=== PATIENT | male | born 1985 | race American Indian/Alaskan Native ===

== ENCOUNTER 2017-09-28 12:24 | Emergency (ER) | payer SELFPAY ==
[2017-09-28 12:57] VITALS: BP 147/93
--- NOTE | 2017-09-28 13:50 | Ultrasound Report ---
TESTICULAR ULTRASOUND WITH DUPLEX DOPPLER ULTRASOUND: 09/28/17 13:03:00 CLINICAL: Scrotal pain scrotal pain. FINDINGS: High resolution ultrasound demonstrated marked left-sided scrotal wall thickening and an irregular complex collection in the left scrotum superior to the left testis measuring approximately 4.5 x 1.6 x 3.2 cm. Echogenic foci within the collection are consistent with air. The left testis is displaced posteriorly by the thickened left scrotum and the more anterior collection. Both testes have normal echogenicity size and contours. No testicular mass or cyst. The right testis measured 4.2 x 2.7 x 2.6 cm. The left testis measured 3.1 x 1.6 x 2.3cm. Both testes and epididymes demonstrated blood flow by color and duplex Doppler with normal spectral waveforms. However, the blood flow in the left testis is reduced and this is explained by the greater distance between the left testis and the probe produced by swelling and the left-sided collection. The left epididymis is not well-demonstrated. The right epididymis is normal with normal blood flow. IMPRESSION: A 4.5 cm left scrotal abscess which may arise from the left epididymis. Reduced blood flow in the left testis is likely due to the technical factor of greater than usual distance between the probe and the testis. No testicular torsion.
[2017-09-28] MEDS ORDERED: BOOSTRIX IM ONE (15:03)
[2017-09-28] MEDS ORDERED: TORADOL IM ONE (15:03)
[2017-09-28] MEDS ORDERED: XYLOCAINE 1% MPF 5 mL INFILTRATI ONE (15:03)
[2017-09-28] MEDS ORDERED: ROCEPHIN IM ONE (15:03)
--- NOTE | 2017-09-28 15:03 | Emergency Department Report ---
ED Male HPI - General Chief complaint: Urogenital-Male Stated complaint: BACK PAIN Time Seen by Provider: 09/28/17 14:57 Source: patient Mode of arrival: Ambulatory Limitations: No Limitations - History of Present Illness Initial comments: Patient reports left testicular pain with swelling and a headache that started three days ago. He reports penile discharge one week ago, however the discharge has resolved. MD Complaint: testicle pain, testicle swelling Onset/Timin -: days(s) Location: left testicle Radiation: other (back) Severity: moderate, severe Severity scale (0 -10): 10 Quality: aching Consistency: constant Improves with: rest Worsens with: movement swelling, rash - Related Data Sexually active: Yes Previous Rx's Medication Instructions Recorded Last Taken Type Clindamycin [Clindamycin CAP] 300 mg PO Q8H #30 cap 09/28/17 Unknown Rx HYDROcodone/APAP 5-325 [Monclova 1 each PO Q6HR PRN #10 tablet 09/28/17 Unknown Rx 5/325] Ibuprofen 800 mg PO QID #30 tablet 09/28/17 Unknown Rx Allergies Allergy/AdvReac Type Severity Reaction Status Date / Time No Known Allergies Allergy Unverified 09/28/17 12:51 ED Review of Systems ROS: Stated complaint: BACK PAIN Other details as noted in HPI Constitutional: denies: chills, fever Respiratory: denies: cough, shortness of breath, wheezing Cardiovascular: denies: chest pain, palpitations, dyspnea on exertion, orthopnea , edema, syncope, paroxysmal nocturnal dyspnea Gastrointestinal: denies: abdominal pain, nausea, vomiting, diarrhea, constipation, hematemesis, hematochezia Genitourinary: denies: urgency, dysuria Musculoskeletal: back pain. denies: joint swelling, arthralgia, myalgia Skin: rash (left testicle). denies: lesions, change in color, change in hair/ nails, pruritus Neurological: headache. denies: weakness, numbness, paresthesias, confusion, abnormal gait, vertigo Psychiatric: denies: anxiety, depression Hematological/Lymphatic: denies: easy bleeding, easy bruising, swollen glands ED Past Medical Hx - Past Medical History Previous Medical History?: No - Surgical History Past Surgical History?: No - Social History Smoking Status: Current Every Day Smoker Substance Use Type: Alcohol - Medications Home Medications: Home Medications Medication Instructions Recorded Confirmed Last Taken Type Clindamycin [Clindamycin CAP] 300 mg PO Q8H #30 cap 09/28/17 Unknown Rx HYDROcodone/APAP 5-325 [Monclova 1 each PO Q6HR PRN #10 tablet 09/28/17 Unknown Rx 5/325] Ibuprofen 800 mg PO QID #30 tablet 09/28/17 Unknown Rx ED Physical Exam - General Limitations: No Limitations General appearance: alert, in no apparent distress - Head Head exam: Present: atraumatic, normocephalic - Neck Neck exam: Present: normal inspection, full ROM. Absent: tenderness, meningismus, lymphadenopathy, thyromegaly - Respiratory Respiratory exam: Present: normal lung sounds bilaterally. Absent: respiratory distress, wheezes, rales, rhonchi, stridor, chest wall tenderness, accessory muscle use, decreased breath sounds, prolonged expiratory - Cardiovascular Cardiovascular Exam: Present: regular rate, normal rhythm, normal heart sounds. Absent: bradycardia, tachycardia, irregular rhythm, systolic murmur, diastolic murmur, rubs, gallop - exam: Present: testicular tenderness (left), scrotal swelling (left testicle) , other (left testicle with erythema and induration, no fluctuance). Absent: urethral discharge, vertical testicular lie, circumcision External exam: Present: erythema, swelling. Absent: lesions, lacerations, ecchymosis, bleeding - Extremities Exam Extremities exam: Present: normal inspection, full ROM, normal capillary refill - Back Exam Back exam: Present: normal inspection, full ROM. Absent: tenderness, CVA tenderness (R), CVA tenderness (L), muscle spasm, paraspinal tenderness, vertebral tenderness - Neurological Exam Neurological exam: Present: alert, oriented X3, CN II-XII intact, normal gait, reflexes normal, other (no focal neuro deficits). Absent: motor sensory deficit - Psychiatric Psychiatric exam: Present: normal affect, normal mood - Skin Skin exam: Present: warm, dry, intact, normal color. Absent: rash ED Course Vital Signs 09/28/17 12:51 Temperature 98.4 F Pulse Rate 83 Respiratory 18 Rate Blood Pressure 147/93 O2 Sat by Pulse 98 Oximetry - Reevaluation(s) Reevaluation #1: 09/28/17 15:05 analgesic, antibiotic injection and imaging study ED Medical Decision Making - Lab Data Vital Signs 09/28/17 12:51 Temperature 98.4 F Pulse Rate 83 Respiratory 18 Rate Blood Pressure 147/93 O2 Sat by Pulse 98 Oximetry - Radiology Data Radiology results: image reviewed TESTICULAR ULTRASOUND WITH DUPLEX DOPPLER ULTRASOUND: 09/28/17 13:03:00 CLINICAL: Scrotal pain scrotal pain. FINDINGS: High resolution ultrasound demonstrated marked left-sided scrotal wall thickening and an irregular complex collection in the left scrotum superior to the left testis measuring approximately 4.5 x 1.6 x 3.2 cm. Echogenic foci within the collection are consistent with air. The left testis is displaced posteriorly by the thickened left scrotum and the more anterior collection. Both testes have normal echogenicity size and contours. No testicular mass or cyst. The right testis measured 4.2 x 2.7 x 2.6 cm. The left testis measured 3.1 x 1.6 x 2.3cm. Both testes and epididymes demonstrated blood flow by color and duplex Doppler with normal spectral waveforms. However, the blood flow in the left testis is reduced and this is explained by the greater distance between the left testis and the probe produced by swelling and the left-sided collection. The left epididymis is not well-demonstrated. The right epididymis is normal with normal blood flow. IMPRESSION: A 4.5 cm left scrotal abscess which may arise from the left epididymis. Reduced blood flow in the left testis is likely due to the technical factor of greater than usual distance between the probe and the testis. No testicular torsion. - Medical Decision Making During the course of ED, analgesic, tetanus, antibiotic injections and imaging study were ordered. The study revealed A 4.5 cm left scrotal abscess which may arise from the left epididymis. Reduced blood flow in the left testis is likely due to the technical factor of greater than usual distance between the probe and the testis. No testicular torsion. Clinical inspection of cellulites is highly likely. Patient was sent home with prescriptions for Ibuprofen, Clindamycin and Monclova, instructed to do warm bath soaks three times a day and return back to the ED in 48 hours for reevaluation of wound response to medication therapy. He verbalized understanding - Differential Diagnosis Left Testicular Cellulitis, Abscess, Testicular Torsion, Headache Critical care attestation.: If time is entered above; I have spent that time in minutes in the direct care of this critically ill patient, excluding procedure time. ED Disposition Clinical Impression: Cellulitis Qualifiers: Site of cellulitis: other site Qualified Code(s): L03.818 - Cellulitis of other sites Headache Qualifiers: Headache type: unspecified Headache chronicity pattern: acute headache Intractability: not intractable Qualified Code(s): R51 - Headache Disposition: DC- TO HOME OR SELFCARE Is pt being admited?: No Does the pt Need Aspirin: No Condition: Stable Instructions: Cellulitis (ED), Acute Headache (ED) Additional Instructions: Take medication as directed. No drinking or driving while taking medications. Warm bath soaks three times a day. Follow up with the selective referral given at discharge. Return back to the ED in 48 hours for wound reevaluation to medication therapy Prescriptions: Clindamycin [Clindamycin CAP] 300 mg PO Q8H #30 cap HYDROcodone/APAP 5-325 [Monclova 5/325] 1 each PO Q6HR PRN #10 tablet PRN Reason: Pain Ibuprofen 800 mg PO QID #30 tablet Referrals: RAFAEL LUIS MD [Staff Physician] - 3-5 Days HIMANSHU MONTEZ MD [Staff Physician] - 3-5 Days Forms: Work/School Release Form(ED) Time of Disposition: 15:21
== END 2017-09-28 15:40 | disposition home or self-care (01) ==
LOC: ED 12:24
DX: N49.2 Inflammatory disorders of scrotum (principal); R51 Headache; F17.200 Nicotine dependence, unspecified, uncomplicated
CPT/HCPCS: 90471; 90715; 93975; 96372; 99283; J0696; J1885